=== PATIENT | female | born 1960 | race Hispanic/Latino ===

== ENCOUNTER 2016-06-30 12:29 | Emergency (ER) | payer BC ==
[2016-06-30 12:44] VITALS: BMI 24.6
[2016-06-30 12:50] VITALS: BP 108/69; PULSE 64; RESP 16; TEMP 98.6; O2SAT 97
--- NOTE | 2016-06-30 13:08 | ED PDOC ---
Arrival/HPI - General Historian: Patient - General Chief Complaint: Lower Extremity Problem/Injury Time Seen by Provider: 06/30/16 12:49 - History of Present Illness Narrative History of Present Illness (Text): 06/30/16 13:06 56 y/o female, penicillin allergy, no significant pmh, c/o rt. knee pain x 1 week. Pt. stated that she has been jumping rope about 1 week ago, been having the rt. knee pain but more towards posteriorly, no calf pain, no fever or chills , no headache or night sweat, relief with the motrin but the pain has not completely resolved, no dizziness, no rash, no other medical or psychological complaints. (Morgan Mina) Past Medical History - Provider Review Nursing Documentation Reviewed: Yes - Past Medical History Past Medical History: Non-Contributing - Cardiac Hx Cardiac Disorders: No - Pulmonary Hx Respiratory Disorders: Yes Hx Bronchitis: Yes - Neurological Hx Neurological Disorder: No - HEENT Hx HEENT Disorder: No - Renal Hx Renal Disorder: No - Endocrine/Metabolic Hx Endocrine Disorders: No - Hematological/Oncological Hx Blood Disorders: No - Integumentary Hx Dermatological Disorder: No - Musculoskeletal/Rheumatological Hx Musculoskeletal Disorders: No Hx Falls: No - Gastrointestinal Hx Gastrointestinal Disorders: Yes Hx Gastroesophageal Reflux: Yes - Genitourinary/Gynecological Hx Genitourinary Disorders: No - Psychiatric Hx Psychophysiologic Disorder: Yes Hx Anxiety: Yes Hx Substance Use: Yes (marijuana) Other/Comment: Panic Attacks - Past Surgical History Past Surgical History: Non-Contributing - Surgical History Other/Comment: Tonsillectomy, breast reduction - Suicidal Assessment Feels Threatened In Home Enviroment: No Family/Social History - Physician Review Nursing Documentation Reviewed: Yes Family/Social History: Unknown Family HX Smoking Status: Former Smoker Hx Alcohol Use: No (socially) Hx Substance Use: Yes (marijuana) Hx Substance Use Treatment: No Allergies/Home Meds Allergies/Adverse Reactions: Allergies amoxicillin Allergy (Verified 06/30/16 12:45) RASH Home Medications: Home Meds Medication Instructions Recorded Confirmed PARoxetine [Paxil] 40 mg PO HS 05/29/12 06/30/16 Aspirin 81 mg PO DAILY 05/30/12 06/30/16 Esomeprazole Magnesium [Nexium] 40 mg PO PRN PRN 05/30/12 06/30/16 Ergocalciferol (Vitamin D2) 0 unit PO DAILY 06/30/16 06/30/16 [Vitamin D] Red Yeast Rice [Red Yeast Rice] 1,200 mg PO DAILY 06/30/16 06/30/16 Review of Systems - Review of Systems Constitutional: absent: Fatigue, Fevers Eyes: absent: Vision Changes ENT: absent: Hearing Changes Respiratory: absent: SOB, Cough Cardiovascular: absent: Chest Pain Gastrointestinal: absent: Abdominal Pain, Nausea, Vomiting Musculoskeletal: Arthralgias. absent: Back Pain, Neck Pain, Joint Swelling, Myalgias Skin: absent: Rash, Pruritis, Skin Lesions, Laceration, Abscess, Ulcer, Cellulitis Neurological: absent: Headache, Dizziness, Focal Weakness Psychiatric: absent: Anxiety, Depression, Suicidal Ideation Physical Exam Vital Signs Reviewed: Yes Temperature: Afebrile Blood Pressure: Normal Pulse: Regular Respiratory Rate: Normal Appearance: Positive for: Well-Appearing, Non-Toxic, Comfortable Pain Distress: Mild Mental Status: Positive for: Alert and Oriented X 3 - Systems Exam Head: Present: Atraumatic, Normocephalic Pupils: Present: PERRL Extroacular Muscles: Present: EOMI Conjunctiva: Present: Normal Mouth: Present: Moist Mucous Membranes Neck: Present: Normal Range of Motion Respiratory/Chest: Present: Clear to Auscultation, Good Air Exchange. No: Respiratory Distress, Accessory Muscle Use Cardiovascular: Present: Regular Rate and Rhythm, Normal S1, S2. No: Murmurs Abdomen: Present: Normal Bowel Sounds. No: Tenderness, Distention, Peritoneal Signs Back: Present: Normal Inspection Upper Extremity: Present: Normal Inspection. No: Cyanosis, Edema Lower Extremity: Present: Normal Inspection, Other (Rt. knee: +ttp on the medial aspect of the proximal tibial region of the knee joint with mild lateral knee swelling, negative darren and little sign, no ecchymosis, FROM without limitation, sensation intact, motor 5/5, +DPPT pulses, capillary refill< 2 seconds, neurovascular intact. ). No: Edema Neurological: Present: GCS=15, CN II-XII Intact, Speech Normal Skin: Present: Warm, Dry, Normal Color. No: Rashes Psychiatric: Present: Alert, Oriented x 3, Normal Insight, Normal Concentration Medical Decision Making - RAD Interpretation Bindery Operator: Radiologist ED Course and Treatment: 06/30/16 13:12 -Rt. knee xray -RLE venuous doppler -Pt. refused pain meds -Yvon wrap applied with neurovascular intact, crutches ordered. 06/30/16 13:44 -LLE Venuous Doppler: as per preliminary report, there is no acute DVT. -Lt. knee xray show mild swelling, no fracture or dislocation -Discharge home with indomethacin, yvon wrap, crutches, ice compression, weight bearing as tolerated, avoid excessive walking up and down the stair, follow up with your own pmd and orthopedic within 2 days, return to the ER for any new or worsening signs or symptoms. 06/30/16 13:49 -Pt. declined crutches, preferred cane. (Morgan Mina) I was available for consultation during PA evaluation. The chart was reviewed by me, and I agree with disposition. The documented history was done by the physician ore digger. The documented physical exam was done by the physician ore digger. The documented procedures were done by the physician ore digger. ( Timoteo Booker) - RAD Interpretation Radiology Orders: 06/30/16 12:50 KNEE W PATELLA RIGHT 3 VIEW [RAD] Stat 06/30/16 13:04 DUPLEX LOWER EXTRM VEIN RIGHT [US] Stat LLE Venuous Doppler: as per preliminary report, there is no acute DVT. Lt. knee xray: no fracture or dislocation (Morgan Mina) - PA / VOCATIONAL DIRECTOR / Resident Statement /DO has reviewed & agrees with the documentation as recorded. Disposition/Present on Arrival - Present on Arrival Any Indicators Present on Arrival: No History of DVT/PE: No History of Uncontrolled Diabetes: No Urinary Catheter: No History of Decub. Ulcer: No History Surgical Site Infection Following: None - Disposition Have Diagnosis and Disposition been Completed?: Yes Disposition Time: 13:44 Patient Plan: Discharge - Disposition Diagnosis: Bursitis, Knee injury Disposition: HOME/ ROUTINE Condition: GOOD Discharge Instructions (ExitCare): Knee Bursitis (ED) Print Language: TAIWANESE Additional Instructions: Discharge home with indomethacin, yvon wrap, crutches, ice compression, weight bearing as tolerated, avoid excessive walking up and down the stair, follow up with your own pmd and orthopedic within 2 days, return to the ER for any new or worsening signs or symptoms. Prescriptions: Indomethacin [Indocin] 50 mg PO TID PRN #30 cap PRN Reason: Other Referrals: Rick Castillo MD [Staff Provider] - Follow up with primary [facility] [place] [Outside] - Follow up with primary Forms: [facility] (Spanish), WORK NOTE
--- NOTE | 2016-06-30 14:20 | RAD ---
PROCEDURE: Right Knee Radiographs. HISTORY: rt. knee pain x 1 week COMPARISON: None. FINDINGS: BONES: Normal. No fracture. JOINTS: Normal. No osteoarthritis. JOINT EFFUSION: None. OTHER FINDINGS: None. IMPRESSION: Normal radiographs of the right knee.
--- NOTE | 2016-06-30 18:01 | US ---
PROCEDURE: Right lower extremity venous US HISTORY: Leg pain and swelling. Evaluate for DVT. PHYSICIAN(S): Hans Amador M.D. TECHNIQUE: Duplex sonography and color-flow Doppler with graded compression were used to evaluate the deep venous system of the right lower extremity. FINDINGS: The visualized deep venous system of the right lower extremity is sonographically normal and compressible. Normal waveforms and augmentation are seen. There is no sonographic evidence for deep venous thrombosis in the visualized segments of the right lower extremity. IMPRESSION: 1. No sonographic evidence for deep venous thrombosis in the visualized segments of the right lower extremity.
== END 2016-06-30 13:45 | disposition home or self-care (01) ==
LOC: ED 12:29
DX: M70.51 Other bursitis of knee, right knee (principal); S89.91XA Unspecified injury of right lower leg, initial encounter; X58.XXXA Exposure to other specified factors, initial encounter; Y93.56 Activity, jumping rope